=== PATIENT | male | born 1960 | race Caucasian/White ===

== ENCOUNTER 2025-08-19 08:39 | Outpatient (AMB) | payer BC, SELFPAY ==
--- OUTSIDE RECORDS SUMMARY | 2025-08-19 09:02 | XMS_ITS | Patient Health Record ---
Author Organization [facility] Address [address] [place] [address] Care Team Providers Care Forming Tube Selector Name Role Phone Сергей Brink DO Primary Care Provider Unavailab le Allergies Allergen (clinical drug ingredient) Drug/Non Drug Allergy documented on EMR Reaction Allergy Type Onset Date Status sulfamethoxazole / trimethoprim Bactrim Unknown Drug Allergy Active omeprazole Omeprazole hives Drug Allergy Activ e Zantac hives Drug Allergy Active Reason For Referral No Information Medications Medication SIG (Take, Route, Frequency, Duration) Notes Start Date End Date Status Diclofenac 75 mg Tablet 1 Tablet Orally Twice a day Active Advair Diskus 500-50 MCG/DOSE Aerosol Powder Breath Activated 1 puff Inhalation Twice a day Active Cromolyn Sodium 20 MG/2ML Nebulization Solution Inhalation Two times a day Active Budesonide 0.5 MG/2ML Suspension 1 application Inhalation Twice a day Active Restasis 0.05 % Emulsion 1 null into aff ected eye Ophthalmic Twice a day Active Social History Tobacco Use: Social History Observation Description Date Details (start date - stop date) Never Smoker NA - NA Social History Tobacco Use: Social Info Question Answer Notes Tobacco Use/Smoking Are you a nonsmoker Plan Of Treatment No Information Insurance Providers Payer Name Payer Address Payer Phone Subscriber Number Group Number Insured Name Patient Relationship to Insured Coverage Start Date [facility]age End Date [facility] [address] [place] [address] [phone] [id number] AIMEE JACOBS Self - patient is the insured Medical (General) History Medical History History ICD Code Asthma High cholesterol Arthritis Fatty liver Surgical History Surgery Date(Month/Year) left inginal hernia surgery right inginal hernia surgery belly button hernia sugery
--- OUTSIDE RECORDS SUMMARY | 2025-08-19 09:02 | XMS_ITS | Clinical Summary ---
[facility] Address [address] [address] Care Team Providers Care Environmental Health And Safety Manager Name Role Phone Unavailable Primary Care Provider Unavailabl e Social History Tobacco Use Types Packs/Day Years Used Date Smoking Tobacco: Never Assessed Sex and Gender Information Value Date Recorded Sex Assigned at Not on file Legal Sex Male 11:59 AM EDT Gender Identity Not on file Sexual Orientation Not on file Plan of Treatment Health Maintenance Due Date Last Done Comments Pneumococcal Vaccine: 50+ Ye ars (1 of 2 - PCV) 1977 Colorectal Cancer Screening: Annual FOBT 2007 Colorectal Cancer Screening: Colonoscopy 2007 Colorectal Cancer Screening: Sigmoidoscopy 2007 Influenza Vaccine (#1) 2025 Hepatitis B Vaccine Aged Out No longe r eligible based on patient's age to complete this topic
--- OUTSIDE RECORDS SUMMARY | 2025-08-19 09:02 | XMS_ITS | Clinical Summary ---
Author Organization [facility] Address [address] [place] [address] Care Team Providers Care Dolphin Trainer Name Role Phone Сергей Brink Primary Care Provider [phone] Social History Tobacco Use Types Packs/Day Years Used Date Smoking Tobacco: Never Assessed Sex and Gender Information Value Date Recorded Sex Assigned at Not on file Legal Sex Male 6:53 PM EDT Gender Identity Not on file Sexual Orientation Not on file Plan of Treatment Health Maintenance Due Date Last Done Comments Hepatitis C Screening 1958 DTaP/Tdap/Td (1 - Tdap) 1976 Pneumococcal 50+ years (1 of 1 - PCV) 2008 Zoster (Shingrix) (1 of 2) 2008 COVID-19 Vaccine ( - 2023-2 5 season) 2025 Influenza (#1) 2025 RSV (1 - 1-dose 75+ series) 2033 Abdominal Aorta Imaging Discontinued HPV Vaccine (No Doses Required) Completed Hep A Aged Out No longer eligi ble based on patient's age to complete this topic Hep B Aged Out No longer eligi ble based on patient's age to complete this topic Hib Aged Out No longer eligi ble based on patient's age to complete this topic Meningococcal ACWY Aged Out No longer eligible based on patient's age to complete this topic Zoster (Zostavax) Discontinued Insurance BC[employer] FFS [employer] Care Teams Dolphin Trainer Relationship Specialty Start Date End Date Сергей Brink [address] [place] [address] PCP - General Internal Medicine 03/24/13
--- OUTSIDE RECORDS SUMMARY | 2025-08-19 09:02 | XMS_ITS | Encounter Summary ---
Author Organization [facility] Address [address] [place] [address] Care Team Providers Care Reverse Logistics Analyst Name Role Phone Carol Medrano CARYN Primary Care Provider [phone] Encounter Details Date Type Department Care Team (Late st Contact Info) Description 03/12/2024 Orders Only [facility] Xray [address] [place] [address] Medhat Jett MD [address] [place] [address] Social History Tobacco Use Types Packs/Day Years Used Date Smoking Tobacco: Never Smokeless Tobacco: Never Comments:: Alcohol Use Standard Drinks/Week Comments Not Currently 0 (1 standard drink = 0.6 oz pur e alcohol) Sex and Gender Information Value Date Recorded Sex Assigned at Male 04/29/2021 2:07 PM EDT Legal Sex Male 3:42 AM EDT Gender Identity Male 04/29/2021 2:07 PM EDT Sexual Orientation Straight 04/29/2021 2: 07 PM EDT documented as of this encounter Plan of Treatment Upcoming Encounters Date Type Department Care Team (Late st Contact Info) Description 08/23/2025 9:00 AM EDT Follow-Up [facility] [address] [place] Pulmonology [address] [address] Darryl Ruiz MD [address] [address] 09/16/2025 2:30 PM EDT Follow-Up [facility] Nephrology [address] [address] Rome Post MD [address] [address] 11/11/2025 8:30 AM EST Follow-Up [facility] Urology [address] [place] [phone] Espinoza Ibarra MD [address] [place] [address] 12/26/2025 9:30 AM EST Education [facility] [address] [place] [address] 12/26/2025 11:00 AM EST Follow-Up [facility] [address] [place] [address] Dawson Khan MD [address] [place] [address] 12/28/2025 10:30 AM EST Appointment [facility] [address] [place] [address] 01/11/2026 11:10 AM EST Hospital Encounter [facility] Operating Room [address] [place] [address] Dawson Khan MD [address] [place] [address] 01/11/2026 11:10 AM EST - 01/11/2026 2:30 PM EST Surgery [facility] Operating Room [address] [place] [id number] Dawson Khan MD [address] [place] [phone] RIGHT TOTAL HIP REPLACEMENT [[id number] (CPT )] 01/24/2026 10:00 AM EST Follow-Up [facility] [address] [place] [address] Dawson Khan MD [address] [place] [address] 02/22/2026 10:45 AM EDT Follow-Up [facility] [address] [place] [address] Dana Caruso NP [address] [place] [address] 04/21/2026 9:00 AM EDT Follow-Up [facility] [address] [address] Dawson Khan MD [address] [place] [address] Scheduled Procedures Name Priority Associated Diagnoses Date/Ti me TOTAL HIP ARTHROPLASTY Right hip pain Primary osteoarthritis of right hip 01/11/2026 11:10 AM EST documented as of this encounter Visit Diagnoses Not on filedocumented in this encounter Additional Health Concerns Infection Onset Date Last Indicated Resolved Time R/O Respiratory Virus Infection 10/06/2024 10/06/2024 12:17 PM EST R/O Influenza 10/06/2024 10/06/2024 10/06/2024 12: 17 PM EST COVID-19 - Suspected infection 10/06/2024 10/06/2024 10/06/2024 12:17 PM EST documented as of this encounter Care Teams Reverse Logistics Analyst Relationship Specialty Start Date End Date Carol Medrano NP [address] [facility] [address] [place] [address] PCP - General Gerontology 04/11/25 documented as of this encounter
--- OUTSIDE RECORDS SUMMARY | 2025-08-19 09:02 | XMS_ITS | Clinical Summary ---
Author Organization [facility] Address [address] [place] [address] Care Team Providers Care Child Care Leader Name Role Phone MedranoCarol CARYN Primary Care Provider [phone] Allergies Active Allergy Reactions Criticality Noted Date Comments Allopurinol Abdominal Pain,Diarrhea,Rash Low 08/18/2023 Alprazolam Rash 08/01/2023 Amitriptyline Other (see comments) 08/04/2024 Amlodipine Abdominal Pain,Lightheadedness ,Other (see comments) Low 08/18/2023 Atorvastatin Calcium Muscle Pain Medium 08/18/2023 Sulfamethoxazole-Trimeth oprim Unknown High Bumetanide Diarrhea,Dizziness,H eadache High 08/18/2023 Bupropion Hcl Other (see comments) Low 08/18/2023 Capsaicin-Menthol Rash Low 06/12/2018 Cefuroxime Axetil Other (see comments) 06/18/20 Stomach ache, nausea Chlorthalidone Abdominal Pain 08/18/2023 Diltiazem Dizziness Medium 08/18/2023 Doxycycline Unknown 08/04/2024 Duloxetine Nausea 02/01/2025 Ezetimibe Muscle Pain Medium 08/18/2023 Furosemide Other (see comments) Medium 08/18/2023 Gabapentin Drowsiness 02/01/2025 Hydralazine Unknown 02/07/2025 hydralazine Labetalol Abdominal Pain,Dizziness,Dyspn ea High 08/18/2023 Lisinopril Cough 08/18/2023 Naproxen Unknown 08/01/2023 Nifedipine Abdominal Pain Medium 08/18/2023 Omeprazole Hives High Spironolactone Itching,Nausea,Rash Medium 08/18/2023 Verapamil Headache Medium 08/18/2023 Ranitidine Hcl Abdominal Pain Medications rosuvastatin (CRESTOR) 5 mg tablet Take 5 mg by mouth once a day. 10/17/20 Active clindamycin (CLEOCIN T) 1 % lotion 10/10/20 20 Active albuterol (PROAIR HFA,VENTOLIN HFA) 90 mcg inhaler USE WITH SPACER AND INHALE 2 PUFFS BY MOUTH THREE TIMES A DAY AND NEEDED 17 g 1 07/02/20 21 Active albuterol 2.5 mg/3 mL (0.083%) nebulizer solution USE 1 VIAL VIA NEBULIZER THREE TIMES DAILY NEEDED 270 mL 3 12/31/19 23 Active cholecalciferol (VITAMIN D3) 2,000 unit capsule Take 1 capsule by mouth once a day. Active cetirizine (ZyrTEC) 10 mg capsule capsule Take every day by oral route. Active budesonide (PULMICORT) 0.5 mg/2 mL suspension USE 1 VIAL VIA NEBULIZER TWICE DAILY, RINSE MOUTH AFTER USE 360 mL 3 12/20/19 25 Active cromolyn (INTAL) 20 mg/2 mL nebulizer solutionIndicat ions:Moderate persistent asthma without complication (HCC) INHALE CONTENTS OF 1 VIAL BY MOUTH IN NEBULIZER TWICE DAILY IF NEEDED FOR SEASONAL ALLERGIES 360 mL 3 12/20/19 25 Active ALPRAZolam (XANAX) 0.5 mg tablet Take 1 tablet by mouth nightly. 12/07/19 25 Active predniSONE (DELTASONE) 10 mg tablet 5 po every day as directed 60 tablet 1 03/07/20 25 Active Wixela Inhub 500-50 mcg/dose inhaler INHALE 1 PUFF BY MOUTH TWICE DAILY. RINSE MOUTH WITH WATER AFTER, DO NOT SWALLOW 60 each 3 05/23/20 25 Active tiotropium (SPIRIVA HANDIHALER) 18 mcg inhalation capsule Inhale 2 puffs (1 capsule total) via handihaler once a day. 1 kit 5 05/25/20 25 Active doxazosin (CARDURA) 4 mg tablet TAKE 1 TABLET BY MOUTH EVERY DAY NIGHTLY 90 tablet 1 06/02/20 25 Active Additional Information Patient taking differently: Pt takes 6 mg daily, Reported on 08/03/2025 fluticasone propionate (FLONASE) 50 mcg/actuation nasal spray USE 2 SPRAYS INTO EACH NOSTRIL TWICE A DAY 96 mL 1 06/14/20 25 Active olmesartan (BENICAR) 20 mg tablet Take 1 tablet (20 mg total) by mouth once a day. 90 tablet 3 07/21/20 25 Active cloNIDine (CATAPRES-TTS) 0.1 mg/[address] 1 PATCH (0.1 MG TOTAL) ON THE SKIN ONCE A WEEK. 12 patch 1 08/01/20 25 026 Active cloNIDine (CATAPRES-TTS) 0.1 mg/[address] 1 PATCH (0.1 MG TOTAL) ON THE SKIN ONCE A WEEK. 12 patch 1 02/15/20 25 025 Discontinued losartan (COZAAR) 25 mg tablet TAKE 1 TABLET BY MOUTH ONCE A DAY 90 tablet 1 03/04/20 25 025 Discontinued Active Problems Problem Noted Date Diagnosed Date Polyneuropathy due to type 2 diabetes mellitus 0 02/07/2025 Neuropathy 12/17/2024 Primary gout 12/16/2024 Plantarflexion deformity of left foot 12/16/2024 Arthritis 08/03/2024 Plantar fasciitis of left foot 11/20/2023 Pain of right hip 11/12/2023 Vitamin D deficiency 09/11/2023 Pain in left foot 09/08/2023 Chronic hepatitis 09/05/2023 BPH (benign prostatic hyperplasia) 08/01/2023 Kidney stones 08/01/2023 Left flank pain 08/01/2023 Diverticulitis of colon with perforation 023 Hyperlipidemia 07/25/2023 Essential hypertension 07/25/2023 Type 2 diabetes mellitus 07/25/2023 Paresthesia of upper limb 07/25/2023 Anxiety 07/25/2023 Kidney cyst, acquired 07/25/2023 Overview (09/05/2023): continue to monitor Renal cyst 07/25/2023 Overview (06/28/2025): continue to monitor Insect bite (nonvenomous) of left shoulder, initial encounter (CODE) 04/23/2023 Tick bite 04/19/2023 Overweight 05/31/2020 Nonspecific abnormal results of function study 0 03/24/2014 Asthma 02/28/2014 Allergic rhinitis 02/28/2014 Obstructive sleep apnea 02/28/2014 Rhinitis 02/28/2014 Gastroesophageal reflux disease without esophagi tis 02/28/2014 Abdominal pain 02/24/2014 Abnormal PFTs Intermittent asthma Resolved Problems Problem Noted Date Diagnosed Date Resolved Date Equinus deformity of left foot 12/16/2024 02/07/2025 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 11/20/2023 02/07/2025 Contact dermatitis due to chemicals 08/01/2023 08/01/2023 Dyspnea 08/01/2023 08/01/2023 Irritation of left eye 08/01/202308/01 Thigh pain 08/01/2023 08/01/2023 Viral upper respiratory trac t infection with cough 08/01/2023 08/01/2023 Encounters Date Type Department Care Team Description 08/04/2025 12:04 PM EDT - 08/04/2025 11:59 PM EDT Hospital Encounter [address] [id number] Discharge Disposition: Home or Self Care () 08/04/2025 Results Follow-Up [address] [address] Malvin Jordan MD 08/03/2025 Telephone [address] [address] Xiomy Britt MA 07/26/2025 8:24 AM EDT - 07/26/2025 11:59 PM EDT Hospital Encounter [facility] [address] [place] [address] Rigo Nguyen MD Discharge Disposition: Home or Self Care () 07/26/2025 7:29 AM EDT - 07/26/2025 8:23 AM EDT Hospital Encounter [facility] [address] [address] Rigo Nguyen MD Discharge Disposition: Home or Self Care () 07/26/2025 myChart Message [address] Department [address] [place] [address] Malvin Jordan MD New MRI 07/26/2025 Results Follow-Up [address] Cardiology [address] [place] [address] Rigo Nguyen MD 07/24/2025 [facility] Nephrology [address] [address] Rome Post MD 07/21/2025 11:30 AM EDT - 07/21/2025 11:59 PM EDT Hospital Encounter [facility] [address] [place] [phone] Rigo Nguyen MD Discharge Disposition: Home or Self Care () 07/21/2025 10:02 AM EDT - 07/21/2025 11:29 AM EDT Hospital Encounter [facility] Cardiology Test Department [address] [place] [phone] Rigo Nguyen MD Chest pain, unspecified type; Essential hypertension; Hyperlipidemia, unspecified hyperlipidemia type Discharge Disposition: Home or Self Care () 07/21/2025 Orders Only [address] Cardiology [address] [place] [address] Rigo Nguyen MD Essential hypertension (Primary Dx) 07/13/2025 8:30 AM EDT Office Visit [address] Physiatry Department [address] [place] [address] Malvin Jordan MD Chronic right-sided low back pain with right-sided sciatica (Primary Dx); Lumbar radiculopathy 07/11/2025 Transcribe Orders [address] Physiatry Department [address] [place] [address] Nate Brand, Other chronic pain (Primary Dx) 07/08/2025 3:30 PM EDT Office Visit [facility] Cardiology [address] [address] Rigo Nguyen MD Chest pain, unspecified type (Primary Dx); Essential hypertension; Hyperlipidemia, unspecified hyperlipidemia type 07/08/2025 myChart Message [facility] [address] [place] [address] Dawson Khan MD Right Hip 07/06/2025 10:17 AM EDT - 07/06/2025 1:56 PM EDT Emergency [facility] Emergency Department [address] [place] [address] Esteban Dodd MD Chest pain, unspecified type (Primary Dx) Discharge Disposition: Home or Self Care (01) 07/06/2025 [facility] Nephrology [address] [place] [phone] Rosetta Bangura [place] 06/28/2025 3:00 PM EDT Follow-Up [facility] [address] [place] [address] Dawson Khan MD Right hip pain (Primary Dx); Primary osteoarthritis of right hip 06/14/2025 Refill [facility] [address] Pulmonology [address] [address] Darryl Ruiz MD 06/09/2025 7:15 AM EDT Evaluation [facility] Physical Therapy Department [address] [place] [address] Marito Vieira PT Arthritis of right hip (Primary Dx) 06/07/2025 7:45 AM EDT Treatment [facility] Physical Therapy Department [address] [place] [address] Lakshmi Garcia PTA Arthritis of right hip (Primary Dx) 06/02/2025 11:[address] [facility] Physical Therapy Department [address] [place] [address] Marito Vieira, PT Arthritis of right hip (Primary Dx) 06/02/2025 Refill [facility] Nephrology [address] [address] Rome Post MD 05/31/2025 3:45 PM EDT Follow-Up [facility] Nephrology [address] , [place] [address] Rome Post MD Essential hypertension (Primary Dx); Kidney stones 05/31/2025 7:[address] [facility] Physical Therapy Department [address] [place] [address] Lakshmi Garcia, LILLY Arthritis of right hip (Primary Dx) 05/26/2025 1:45 PM EDT Lab [facility] Draw Site Department [address] [place] [address] Type 2 diabetes mellitus without complication, unspecified whether custodial insulin use (HCC) (Primary Dx) 05/26/2025 1:[address] [facility] Physical Therapy Department [address] [place] [phone] Lakshmi Garcia, EGG BUYER Arthritis of right hip (Primary Dx) 05/26/2025 Telephone [facility] Nephrology [address] [address] Rosetta Bangura [place] 05/24/2025 8:[address] [facility] Physical Therapy Department [address] [place] [address] Marito Vieira, PT Arthritis of right hip (Primary Dx) 05/24/2025 Refill [facility] [address] Pulmonology [address] [address] Darryl Ruiz MD 05/24/2025 Telephone [facility] [address] Pulmonology 85 [facility] [address] [place] [address] Darryl Ruiz MD 05/22/2025 Refill [facility] [address] Pul[facility]ology 85 [facility] [address] [place] [address] Darryl Ruiz MD from Last 3 Months Immunizations Immunization Administration Dates Next Due INFLUENZA, SPLIT VIRUS, TRIVALENT, PF 07/27/2017 ,09/14/2016,12/05/2015 Influenza, Injectable, Madin Jaelyn Canine Kidney, Preservative Free, Quadrivalent 08/04/2022 Influenza, Injectable, Quadr ivalent Preservative Free 09/11/2023 Influenza, Injectable, Quadr ivalent, Preservative Free 08/05/2020,07/16/2018 Influenza, Trivalent, MDV, Injectable 08/18/2021 Tetanus Toxoid, Reduced Diph theria Toxoid, and Acellular Pertussis Vaccine, Adsorbed 01/28/2017 Family History Medical History Relation Name Comments Arthritis Brother Diabetes Brother Hypertension Brother COPD Father Hypertension Father Hypertension Mother Lung cancer Mother Other Other Unknown Family history of Known health problems: none Arthritis Sister Hypertension Sister Kidney disease Neg Hx Relation Name Status Comments Brother Father Mother Other Sister Social History Tobacco Use Types Packs/Day Years Used Date Smoking Tobacco: Never Smokeless Tobacco: Never Tobacco Cessation:Counseling Given: Not Answered Comments:: Alcohol Use Standard Drinks/Week Comments Yes 0 (1 standard drink = 0.6 oz pur e alcohol) [facility] Utilities Answer Date Recorded In the past 12 months has e [employer], gas, oil, or water [employer] threatened to shut off services in your home? No 07/06/2025 Hunger Vital Sign Answer Date Recorded Within the past 12 months, y ou worried that your food would run out before you got the money to buy more. Never true 07/06/20 25 Within the past 12 months, t he food you bought just didn't last and you didn't have money to get more. Never true 07/06/2025 Transportation Answer Date Recorded In the past 12 months, has l ack of reliable transportation kept you from medical appointments, meetings, work or from getting things needed for daily living? No 07/06/2025 Housing Answer Date Recorded Housing Risk Low 2 07/06/2025 Housing Risk Medium Not on file 07/06/2025 Housing Risk High Not on file 07/06/2025 What is your living situation today? 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 Not on file Not on file Last Filed Vital Signs Vital Sign Reading Time Taken Comments Blood Pressure 134/68 07/08/2025 3:21 PM EDT Pulse 78 07/08/2025 3:19 PM EDT Temperature 36.6 C (97.8 F) 07/06/2025 10:15 AM EDT Respiratory Rate 18 07/06/2025 10:15 AM EDT Oxygen Saturation 96% 07/08/2025 3:19 PM EDT Inhaled Oxygen Concentration - - Weight 90.7 kg (200 lb) 07/13/2025 8:14 AM EDT Height 180.3 cm (5' 11 ) 07/13/2025 8:14 AM EDT Body Mass Index 27.89 07/13/2025 8:14 AM EDT Plan of Treatment Upcoming Encounters Date Type Department Care Team (Late st Contact Info) Description 08/23/2025 9:00 AM EDT Follow-Up [facility] [address] Pulmonology 85 [facility] [address] [place] [address] Darryl Ruiz MD [address] [address] 09/16/2025 2:30 PM EDT Follow-Up [facility] Nephrology [address] [place] [address] Rome Post MD [address] [place] [address] 11/11/2025 8:30 AM EST Follow-Up [facility] Urology [address] [place] [phone] Espinoza Ibarra MD [address] [place] [address] 12/26/2025 9:30 AM EST Education [facility] [address] [place] [address] 12/26/2025 11:00 AM EST Follow-Up [facility] [address] [address] Dawson Khan MD [address] [place] [address] 12/28/2025 10:30 AM EST Appointment [facility] [address] [place] [address] 01/11/2026 11:10 AM EST Hospital Encounter [facility] Operating Room [address] [place] [address] Dawson Khan MD [address] [place] [address] 01/11/2026 11:10 AM EST - 01/11/2026 2:30 PM EST Surgery [facility] Operating Room [address] [place] [address] Dawson Khan MD [address] [place] [phone] RIGHT TOTAL HIP REPLACEMENT [68715 (CPT )] 01/24/2026 10:00 AM EST Follow-Up [facility] [address] [place] [address] Dawson Khan MD [address] [place] [address] 02/22/2026 10:45 AM EDT Follow-Up [facility] [address] [place] [address] Dana Caruso NP [address] [place] [address] 04/21/2026 9:00 AM EDT Follow-Up [facility] [address] [place] [address] Dawson Khan MD [address] [place] [address] Scheduled Procedures Name Priority Associated Diagnoses Date/Ti me TOTAL HIP ARTHROPLASTY Right hip pain Primary osteoarthritis of right hip 01/11/2026 11:10 AM EST Health Maintenance Due Date Last Done Comments Cologuard 1958 FOBT / Fit Test 1958 Sigmoidoscopy 1958 Ophthalmology Exam 1968 Pneumococcal Vaccine: 50+ Ye ars (1 of 2 - PCV) 1977 Zoster Vaccines (1 of 2) 2008 Hepatitis B Vaccines (1 of 3 - Risk 3-dose series) 2018 RSV Vaccine (60+ years old a nd patients) (1 - Risk 60-74 years 1-dose series) 2018 Urine Microalbumin 03/12/2024 03/12/2023, 11/14/2022 Alcohol/Substance Use Screening 11/24/2024 Depression Screening and Follow-Up 11/24/2024 Health Care Proxy Review 11/24/2024 COVID-19 Vaccine (5 - 2024-2 6 season) 2025 09/12/2022, 11/19/2021, 02/20/2021, Additional history exists Influenza Vaccine (#1) 2025 , 09/11/2023, 08/04/2022, Additional history exists Hemoglobin A1C 11/26/2025 05/26/2025, 05/0 11/2024, 09/07/2024, Additional history exists Basic Metabolic Panel 07/06/2026 07/06/2025 , 05/26/2025, 03/24/2025, Additional history exists Social Drivers of Health Twyla ual Screening 07/06/2026 07/06/2025 DTaP,Tdap,and Td Vaccines (2 - Td or Tdap) 01/28/2027 01/28/2017 Colon Cancer Screening 05/25/2034 Colonoscopy 05/25/2034 05/25/2024, 070 12/2023, 05/19/2014 Hepatitis C Screening Completed 03/24/2014 Goals Goal Patient Goal Type Associated Problems Recent Progress Patient-Stated? Author Autogenerat ed Goal Care Plan Autogenerated Problem No Geovanna Black Mehran Procedures * Due to [place] state law, this organization might not be sharing negative HIV tests. Procedure Name Priority Date/Time Associated Diagnosis Comments MRI LUMBAR SPINE WO CONTRAST Routine 08/04/2025 1:10 PM EDT Chronic right-sided low back pain with right-sided sciatica Lumbar radiculopathy NM 2-DAY PHARMACOLOGIC STRESS AND REST Routine 07/26/2025 8:47 AM EDT Chest pain, unspecified type Essential hypertension Hyperlipidemia, unspecified hyperlipidemia type ECG 12-LEAD Routine 07/08/2025 3:20 PM EDT Chest pain, unspecified type ECG 12-LEAD STAT 07/06/2025 1:24 PM EDT TROPONIN T HIGH SENSITIVITY Timed 07/06/2025 12:23 PM EDT XR CHEST 2 VW STAT 07/06/2025 10:51 AM EDT TROPONIN T HIGH SENSITIVITY Timed 07/06/2025 10:28 AM EDT BASIC METABOLIC PANEL STAT 07/06/2025 10:28 AM EDT CBC AUTO DIFFERENTIAL STAT 07/06/2025 10:28 AM EDT ECG 12-LEAD STAT 07/06/2025 10:12 AM EDT FERRITIN Routine 05/26/2025 12:05 PM EDT Type 2 diabetes mellitus without complication, unspecified whether custodial insulin use (HCC) IRON SATURATION Routine 05/26/2025 12:05 PM EDT Type 2 diabetes mellitus without complication, unspecified whether custodial insulin use (HCC) TSH REFLEX FREE T4 Routine 05/26/2025 12 :05 PM EDT Type 2 diabetes mellitus without complication, unspecified whether custodial insulin use (HCC) IRON, TIBC AND FERRITIN PANEL (5616) Routine 05/26/2025 12:05 PM EDT Type 2 diabetes mellitus without complication, unspecified whether splitter hand insulin use (HCC) VITAMIN D, 25-HYDROXY, TOTAL, IMMUNOASSAY Routine 05/26/2025 12:05 PM EDT Type 2 diabetes mellitus without complication, unspecified whether splitter hand insulin use (HCC) CBC AUTO DIFFERENTIAL Routine 05/26/2025 12:05 PM EDT Type 2 diabetes mellitus without complication, unspecified whether splitter hand insulin use (HCC) VITAMIN B12 Routine 05/26/2025 12:05 PM EDT Type 2 diabetes mellitus without complication, unspecified whether custodial insulin use (HCC) COMPREHENSIVE METABOLIC PANEL Routine 05/26/2025 12:05 PM EDT Type 2 diabetes mellitus without complication, unspecified whether splitter hand insulin use (HCC) HEMOGLOBIN A1C Routine 05/26/2025 12:05 PM EDT Type 2 diabetes mellitus without complication, unspecified whether splitter hand insulin use (HCC) COLONOSCOPY 05/25/2024 MICROALBUMIN, RANDOM URINE WITH CREATININE Routine 03/12/2023 2:23 PM EDT HEPATITIS C ANTIBODY, CONVERSION Routine 03/24/2014 11:33 AM EDT from Last 3 Months or Most Recently Relevant to Health Maintenance Results * Due to [place] state law, this organization might not be sharing negative HIV tests. * MRI Lumbar Spine WO Contrast (08/04/2025 1:10 PM EDT) Anatomical Region Laterality Modality Spine, L-spine Magnetic Resonan ce 08/04/2025 12:3 0 PM EDT Impressions 08/04/2025 2:29 PM EDT Multilevel mild spinal stenosis. Moderate right neuroforaminal compromise is noted at L3-4 and moderate to severe right neuroforaminal compromise noted at L4-5. Moderate left neuroforaminal compromise noted at L4-5. If this radiology report contains a blank impression section, it is an incomplete radiology report. Please contact the interpreting radiologist or applicable radiology division as soon as possible to obtain the completed interpretation. Workstation ID: [id number] Narrative 08/04/2025 2:29 PM EDT EXAMINATION: MRI LUMBAR SPINE WO CONTRAST INDICATION: Lumbar radiculopathy, symptoms persist with > 6 wks treatment M54.41 - I10 - Lumbago with sciatica, right side M54.41 - I10 - Lumbago with sciatica, right side M54.41 - I10 - Lumbago with sciatica, right side - Progressive low back pain rating to right leg without improvement from physical therapy, assess for stenosis, procedural planning TECHNIQUE: MRI was performed on a 1.5Tesla system. Imaging sequences include T1 sagittal, T2 sagittal, inversion recovery sagittal; T1 and T2 axial. COMPARISON: 10/14/2023 FINDINGS: There is anatomic alignment and no evidence of fracture or subluxation. The conus terminates at L1. The vertebral heights are well-preserved. The prevertebral soft tissues are unremarkable. Disc spaces are maintained. At L1-L2, mild compromise the central canal secondary to a short pedicles and hypertrophic changes of the facets and ligaments. Disc osteophytic changes result in mild bilateral neuroforaminal compromise. At L2-L3, mild spinal stenosis secondary to a short pedicles and mild hypertrophic changes of facets and ligaments. Disc osteophytic changes result in moderate right and mild left neuroforaminal compromise. At L3-L4, mild spinal stenosis secondary to circumferential disc bulge, short pedicles and hypertrophic changes of the facets and ligaments especially on the left. Disc osteophytic changes result in moderate right and mild left neuroforaminal compromise. At L4-L5, mild spinal stenosis secondary to a circumferential disc bulge, short pedicles and hypertrophic changes of the facets and ligaments. Disc osteophytic changes result in moderate to severe right and moderate left neuroforaminal compromise. At L5-S1, no significant central spinal stenosis or neuroforaminal narrowing. Resulting Agency Comment [id number] Procedure Note Donald Hopper MD - 08/04/2025 EXAMINATION: MRI LUMBAR SPINE WO CONTRAST INDICATION: Lumbar radiculopathy, symptoms persist with > 6 wks [id number] - I10 - Lumbago with sciatica, right side M54.41 - I10 - Lumbagowith sciatica, right side M54.41 - I10 - Lumbago with sciatica, right side- Progressive low back pain rating to right leg without improvement fromphysical therapy, assess for stenosis, procedural planning TECHNIQUE: MRI was performed on a 1.5Tesla system. Imaging sequences include [id number], T2 sagittal, inversion recovery sagittal; T1 and T2 axial. COMPARISON: 10/14/2023 FINDINGS: There is anatomic alignment and no evidence of fracture or subluxation. The conus terminates at L1. The vertebral heights are well-preserved. The prevertebral soft tissues are unremarkable. Disc spaces are maintained. At L1-L2, mild compromise the central canal secondary to a short pediclesand hypertrophic changes of the facets and ligaments. Disc osteophyticchanges result in mild bilateral neuroforaminal compromise. At L2-L3, mild spinal stenosis secondary to a short pedicles and mildhypertrophic changes of facets and ligaments. Disc osteophytic changesresult in moderate right and mild left neuroforaminal compromise. At L3-L4, mild spinal stenosis secondary to circumferential disc bulge,short pedicles and hypertrophic changes of the facets and ligamentsespecially on the left. Disc osteophytic changes result in moderate rightand mild left neuroforaminal compromise. At L4-L5, mild spinal stenosis secondary to a circumferential disc bulge,short pedicles and hypertrophic changes of the facets and ligaments. Discosteophytic changes result in moderate to severe right and moderate leftneuroforaminal compromise. At L5-S1, no significant central spinal stenosis or neuroforaminalnarrowing. IMPRESSION: Multilevel mild spinal stenosis. Moderate right neuroforaminal compromiseis noted at L3-4 and moderate to severe right neuroforaminal compromisenoted at L4-5. Moderate left neuroforaminal compromise noted at L4-5. If this radiology report contains a blank impression section, it is anincomplete radiology report. Please contact the interpreting radiologistor applicable radiology division as soon as possible to obtain thecompleted interpretation. Workstation ID: [id number] us Malvin Jordan MD IMG MRI PROCEDURES F inal Result * NM 2-Day Stress and Rest (07/26/2025 8:47 AM EDT) Anatomical Region Laterality Modality Heart Treadmill 07/26/2025 9:23 AM EDT Impressions 07/26/2025 9:24 AM EDT Normal pharmacologic nuclear stress test without nuclear imaging evidence of ischemia or prior myocardial infarction. Left ventricular cavity size and systolic function are normal on gated nuclear imaging. If this radiology report contains a blank impression section, it is an incomplete radiology report. Please contact the interpreting radiologist or applicable radiology division as soon as possible to obtain the completed interpretation. Workstation ID: [id number] Narrative 07/26/2025 9:24 AM EDT EXAM: REGADENOSON MYOCARDIAL PERFUSION SPECT SCAN INDICATION: Chest pain/anginal equiv, intermediate CAD risk, not treadmill candidate R07.9 - I10 - Chest pain, unspecified R07.9 - I10 - Chest pain, unspecified R07.9 - I10 - Chest pain, unspecified PHARMACOLOGIC STRESS TEST: The patient had a total dose of 0.4 mg regadenoson infused IV over 10 seconds. The HR was 70 bpm at baseline and 96 bpm at peak regadenoson effect. The blood pressure response was normal going from 148/88 to 168/91. The patient's baseline ECG demonstrated sinus rhythm. There were no ECG changes during or after regadenoson to suggest ischemia. No concerning arrhythmias were detected. The patient reported abdominal discomfort and a headache for which 75 mg of aminophylline were administered IV. Symptoms resolved afterward. IMAGING PROCEDURE: Following regadenoson infusion, the patient was injected with 25 mCi Tc99m Sestamibi. SPECT cardiac imaging was again performed. On a different day, rest SPECT cardiac imaging was performed using 25 mCi Tc99m Sestamibi. SPECT cardiac imaging was then performed. Images were gated to evaluate wall thickening and wall motion. A left ventricular ejection fraction was calculated by computer analysis. FINDINGS: Post stress myocardial images show normal tracer uptake throughout the left ventricular myocardium. Rest images are unchanged. ECG-gated post-stress myocardial images demonstrate normal wall motion and thickening. TID ratio is normal measuring 0.9.The calculated LVEF is 59% with rest imaging, and 65% with post stress imaging. The LV chamber size is normal. Resulting Agency Comment [id number] Procedure Note Rigo Nguyen MD - 07/26/2025 EXAM: REGADENOSON MYOCARDIAL PERFUSION SPECT SCAN INDICATION: Chest pain/anginal equiv, intermediate CAD risk, not treadmillcandidate R07.9 - I10 - Chest pain, unspecified R07.9 - I10 - Chest pain,unspecified R07.9 - I10 - Chest pain, unspecified PHARMACOLOGIC STRESS TEST: The patient had a total dose of 0.4 mgregadenoson infused IV over 10 seconds. The HR was 70 bpm at baseline and96 bpm at peak regadenoson effect. The blood pressure response was normalgoing from 148/88 to 168/91. The patient's baseline ECG demonstratedsinus rhythm. There were no ECG changes during or after regadenoson tosuggest ischemia. No concerning arrhythmias were detected. The patientreported abdominal discomfort and a headache for which 75 mg ofaminophylline were administered IV. Symptoms resolved afterward. IMAGING PROCEDURE: Following regadenoson infusion, the patient wasinjected with 25 mCi Tc99m Sestamibi. SPECT cardiac imaging was againperformed. On a different day, rest SPECT cardiac imaging was performedusing 25 mCi Tc99m Sestamibi. SPECT cardiac imaging was then performed.Images were gated to evaluate wall thickening and wall motion. A leftventricular ejection fraction was calculated by computer analysis. FINDINGS: Post stress myocardial images show normal tracer uptakethroughout the left ventricular myocardium. Rest images are unchanged.ECG-gated post-stress myocardial images demonstrate normal wall motion andthickening. TID ratio is normal measuring 0.9.The calculated LVEF is 59%with rest imaging, and 65% with post stress imaging. The LV chamber sizeis normal. IMPRESSION: Normal pharmacologic nuclear stress test without nuclear imaging evidenceof ischemia or prior myocardial infarction. Left ventricular cavity sizeand systolic function are normal on gated nuclear imaging. If this radiology report contains a blank impression section, it is anincomplete radiology report. Please contact the interpreting radiologistor applicable radiology division as soon as possible to obtain thecompleted interpretation. Workstation ID: [id number] us Rigo Nguyen MD IMG NM PROCEDURES Final R esult * ECG 12 lead (07/08/2025 3:20 PM EDT) Only the most recent of3 resultswithin the time period is included. Ventricular Rate EKG 76 BPM MUSE EKG Atrial Rate 76 BPM MUSE EKG NJ Interval 176 ms MUSE EKG QRS Interval 82 ms MUSE EKG QT Interval 370 ms MUSE EKG QTC Interval 416 ms MUSE EKG P Hewlett 43 degrees MUSE EKG R Hewlett 9 degrees MUSE EKG T Wave Hewlett 50 degrees MUSE EKG 07/08/2025 3:20 PM EDT 07/08/2025 5:02 PM EDT Impressions MUSE EKG - 07/08/2025 5:02 PM EDT Normal sinus rhythm Normal ECG When compared with ECG of 06-Jul-2025 13:24, No significant change was found Confirmed by Rigo Nguyen ([id number]) on 07/08/2025 5:02:37 PM Narrative Procedure Note Rigo Nguyen MD - 07/08/2025 IMPRESSION: Normal sinus rhythm Normal ECG When compared with ECG of 06-Jul-2025 13:24, No significant change was found Confirmed by Rigo Nguyen ([id number]) on 07/08/2025 5:02:37 PM us Rigo Nguyen MD ECG ORDERABLES Final Res ult Performing Organization Address [facility] Co de Phone Number MUSE EKG * Troponin T, High Sensitivity X2 (now + 2hrs) (07/06/2025 12:23 PM EDT) Only the most recent of2 resultswithin the time period is included. Troponin T High Sensitivity 14 6 - 22 ng/L 07/06/2025 1:00 PM EDT [facility] Comment: Xp-Sbgcrcab-B level of 52 ng/L or higher at 0-hour at presentation is recommended by the ESC 0/1-hour algorithm for identifying patients at high risk for ruling in acute myocardial infarction (AMI) in the appropriate clinical context. Repeat troponin testing 1-3 hours after the initial sample may be helpful in assessing for ongoing myocardial injury. Troponin elevations can be seen in several other non-infarct conditions, and the change (delta) should be evaluated in line with the 4th Penelope Definition of AMI. Troponin baseline and serial elevation for a significant delta should be interpreted with clinical presentation, history, signs and symptoms, ECG, and biomarker concentrations. For inpatient setting: Value <12ng/L is considered negative for all genders. 0-1hr: A delta change of <3 will be considered negative/flat if chest pain onset >3 hours 0-3hr: A delta change of <7 will be considered negative/flat Blood Structure of peripheral vein / Unknown Venipuncture / Unknown 07/06/2025 12:23 PM EDT 07/06/2025 12:28 PM EDT Esteban Dodd MD LAB BLOOD ORDERABLES Fin al Result Performing Organization Address [facility] Co de Phone Number [facility] [address] [place] [address], [place] [phone] * XR Chest 2 vw. Standard (07/06/2025 10:51 AM EDT) Anatomical Region Laterality Modality Body Radiographic Stacie ging 07/06/2025 11:4 0 AM EDT Impressions 07/06/2025 11:46 AM EDT No focal consolidation or evidence of pulmonary edema. If this radiology report contains a blank impression section, it is an incomplete radiology report. Please contact the interpreting radiologist or applicable radiology division as soon as possible to obtain the completed interpretation. Workstation ID: [id number] Narrative 07/06/2025 11:46 AM EDT COMPARISON: Chest radiographs from 07/13/2024 FINDINGS: The cardiomediastinal silhouette is unremarkable. Trachea has a normal course and caliber. Pulmonary vasculature is normal. Minimal blunting of the posterior right costophrenic angle may represent a trace effusion. No focal consolidation. No pneumothorax. No acute osseous abnormalities. Resulting Agency Comment [id number] Procedure Note Shady Krueger MD - 07/06/2025 COMPARISON: Chest radiographs from 07/13/2024 FINDINGS: The cardiomediastinal silhouette is unremarkable. Trachea has a normalcourse and caliber. Pulmonary vasculature is normal. Minimal blunting ofthe posterior right costophrenic angle may represent a trace effusion. Nofocal consolidation. No pneumothorax. No acute osseous abnormalities. IMPRESSION: No focal consolidation or evidence of pulmonary edema. If this radiology report contains a blank impression section, it is anincomplete radiology report. Please contact the interpreting radiologistor applicable radiology division as soon as possible to obtain thecompleted interpretation. Workstation ID: [id number] Esteban Dodd MD IMG XR PROCEDURES Final Result * (ABNORMAL) CBC Auto Differential (07/06/2025 10:28 AM EDT) Only the most recent of2 resultswithin the time period is included. WBC 7.4 4.8 - 10.8 10*3/uL 07/06/2025 10:40 AM EDT [facility] RBC 5.31 4.70 - 6.10 10*6/uL 07/06/2025 10:40 AM EDT [facility] Hemoglobin 15.9 13.7 - 16.5 g/dL 07/06/2025 10:40 AM EDT [facility] Hematocrit 44.5 40.5 - 48.5 % 07/06/2025 10:40 AM EDT [facility] MCV 83.8 80.0 - 94.0 fL 07/06/2025 10:40 AM EDT [facility] MCH 29.9 26.0 - 34.0 pg 07/06/2025 10:40 AM EDT [facility] MCHC 35.7 31.0 - 36.0 g/dL 07/06/2025 10:40 AM EDT [facility] RDW 12.7 12.0 - 15.0 % 07/06/2025 10:40 AM EDT [facility] RDW Standard Deviation 39.1 35.1 - 43.9 fL 07/06/2025 10:40 AM EDT [facility] Platelets 167 140 - 440 10*3/uL 07/06/2025 10:40 AM EDT [facility] MPV 9.5 9.4 - 12.4 fL 07/06/2025 10:40 AM EDT [facility] Neutrophil % 74.1 50.0 - 75.0 % 07/06/2025 10:40 AM EDT [facility] Immature Grans % 0.3 0.0 - 0.9 % 07/06/2025 10:40 AM EDT [facility] Lymphocyte % 18.9(L) 20.0 - 44.0 % 07/06/2025 10:40 AM EDT [facility] Monocyte % 5.0 0.0 - 14.0 % 07/06/2025 10:40 AM EDT [facility] Eosinophil % 1.2 0.0 - 5.0 % 07/06/2025 10:40 AM EDT [facility] Basophil % 0.5 0.0 - 2.0 % 07/06/2025 10:40 AM EDT [facility] Neutrophil # 5.49 1.80 - 7.70 10*3/uL 07/06/2025 10:40 AM EDT [facility] Immature Grans # <0.03 0.00 - 0.03 10*3/uL 07/06/2025 10:40 AM EDT [facility] Lymphocyte # 1.40 1.00 - 4.75 10*3/uL 07/06/2025 10:40 AM EDT [facility] Monocyte # 0.40 0.00 - 0.60 10*3/uL 07/06/2025 10:40 AM EDT [facility] Eosinophil # 0.10 0.00 - 0.80 10*3/uL 07/06/2025 10:40 AM EDT [facility] Basophil # <0.03 0.00 - 0.20 10*3/uL 07/06/2025 10:40 AM EDT [facility] nRBC % 0.0 0 - 0 /100 WBCs 07/06/2025 10:40 AM EDT [facility] nRBC # <0.01 0.00 - 0.13 10*3/uL 07/06/2025 10:40 AM EDT [facility] Blood Structure of peripheral vein / Unknown Venipuncture / Unknown 07/06/2025 10:28 AM EDT 07/06/2025 10:37 AM EDT us Esteban Dodd MD LAB BLOOD ORDERABLES Fin al Result Performing Organization Address City/State/[facility] Co de Phone Number [facility] [address] [place] [address], * (ABNORMAL) Basic Metabolic Panel (07/06/2025 10:28 AM EDT) NA 142 136 - 145 mmol/L 07/06/2025 11:08 AM EDT [facility] K 3.9 3.5 - 5.1 mmol/L 07/06/2025 11:08 AM EDT [facility] Cl 102 98 - 109 mmol/L 07/06/2025 11:08 AM EDT [facility] CO2 27 22 - 32 mmol/L 07/06/2025 11:08 AM EDT [facility] BUN 14 8 - 23 mg/dL 07/06/2025 11:08 AM EDT [facility] Creatinine 0.92 0.50 - 1.12 mg/dL 07/06/2025 11:08 AM EDT [facility] Glucose 99 60 - 99 mg/dL 07/06/2025 11:08 AM EDT [facility] Calcium 10.5(H) 8.4 - 10.4 mg/dL 07/06/2025 11:08 AM EDT [facility] Anion Gap 17 >=0 07/06/2025 11:08 AM EDT [facility] eGFR >90 >=60 mL/min/1. 73m2 07/06/2025 11:08 AM EDT [facility] Comment:The estimated glomer ular filtration rate (eGFR) is calculated using a new formula developed by the NKF-ASN task force to eliminate race-based correction factors. The new formula uses serum/plasma creatinine, age, and gender to determine eGFR. A value below 60mls/min might indicate kidney disease and will be flagged. For additional information, see Munguia et al, Am J Kidney Dis. 2021;79(2):268- 288, A Unifying Approach for GFR estimation: Recommendations of the NKF-ASN Task Force on Reassessing the Inclusion of Race in Diagnosing Kidney Disease . Blood Structure of peripheral vein / Unknown Venipuncture / Unknown 07/06/2025 10:28 AM EDT 07/06/2025 10:37 AM EDT Esteban Dodd MD LAB BLOOD ORDERABLES Fin al Result [facility] [address] [place] [address], * Iron Saturation (05/26/2025 12:05 PM EDT) Iron 98 59 - 158 ug/dL 05/26/2025 1:30 PM EDT [facility] Unsaturated Iron Binding 252.0 112.0 - 347.0 ug/dL 05/26/2025 1:30 PM EDT [facility] Transferrin Saturation 28 20 - 50 % 05/26/2025 1:30 PM EDT [facility] Blood Structure of peripheral vein / Unknown Venipuncture / Unknown 05/26/2025 12:05 PM EDT 05/26/2025 12:21 PM EDT us Wes Owen NP LAB BLOOD ORDERABLES Final Res ult Performing Organization Address [facility]/ZIP Co de Phone Number [facility] [address] [address], [place] [phone] * TSH Reflex Free T4 (05/26/2025 12:05 PM EDT) TSH 1.650 0.270 - 4.200 uIU/mL 05/26/2025 1:30 PM EDT [facility] Blood Structure of peripheral vein / Unknown Venipuncture / Unknown 05/26/2025 12:05 PM EDT 05/26/2025 12:21 PM EDT us Wes Owen NP LAB BLOOD ORDERABLES Final Res ult Performing Organization Address [facility] Co de Phone Number [facility] [address] [place] [address], [place] [phone] * Vitamin D, 25-Hydroxy, Total, Immunoassay (05/26/2025 12:05 PM EDT) Vitamin D 25-OH 49.20 30.00 - 80.00 ng/mL 05/26/2025 1:36 PM EDT [facility] Blood Structure of peripheral vein / Unknown Venipuncture / Unknown 05/26/2025 12:05 PM EDT 05/26/2025 12:21 PM EDT us Wes Owen DOCUMENT RESTORER LAB BLOOD ORDERABLES Final Res ult Performing Organization Address [facility]/ZIP Co de Phone Number [facility] [address] [address], [place] [phone] * (ABNORMAL) Hemoglobin A1c (05/26/2025 12:05 PM EDT) Hemoglobin A1c 6.3(H) 4.0 - 5.7 % 05/26/2025 12:44 PM EDT [facility] Estimated Average Glucose 134 mg/dL 05/26/2025 12:44 PM EDT [facility] Blood Structure of peripheral vein / Unknown Venipuncture / Unknown 05/26/2025 12:05 PM EDT 05/26/2025 12:21 PM EDT us Wes Owen DOCUMENT RESTORER LAB BLOOD ORDERABLES Final Res ult Performing Organization Address [facility] Co de Phone Number [facility] [address] [place] [address], [place] [phone] * Ferritin (05/26/2025 12:05 PM EDT) Pathologist [facility] Ferritin 178.0 30.0 - 400.0 ng/mL 05/26/2025 1:30 PM EDT [facility] Blood Structure of peripheral vein / Unknown Venipuncture / Unknown 05/26/2025 12:05 PM EDT 05/26/2025 12:21 PM EDT us Wes Owen DOCUMENT RESTORER LAB BLOOD ORDERABLES Final Res ult Performing Organization Address City/[facility]/ZIP Co de Phone Number [facility] [address] [place] [address], [place] [phone] * Vitamin B12 (05/26/2025 12:05 PM EDT) Vitamin B12 441 232 - 1,245 pg/mL 05/26/2025 1:30 PM EDT [facility] Blood Structure of peripheral vein / Unknown Venipuncture / Unknown 05/26/2025 12:05 PM EDT 05/26/2025 12:21 PM EDT us Wes Owen DOCUMENT RESTORER LAB BLOOD ORDERABLES Final Res ult [facility] [address] [place] [address], [place] [phone] * (ABNORMAL) Comprehensive Metabolic Panel (05/26/2025 12:05 PM EDT) NA 140 136 - 145 mmol/L 05/26/2025 1:30 PM EDT [facility] K 4.1 3.5 - 5.1 mmol/L 05/26/2025 1:30 PM EDT [facility] Cl 102 98 - 109 mmol/L 05/26/2025 1:30 PM EDT [facility] CO2 27 22 - 32 mmol/L 05/26/2025 1:30 PM EDT [facility] Anion Gap 15 >=0 05/26/2025 1:30 PM EDT [facility] Glucose 98 60 - 99 mg/dL 05/26/2025 1:30 PM EDT [facility] Creatinine 0.95 0.50 - 1.12 mg/dL 05/26/2025 1:30 PM EDT [facility] Calcium 9.8 8.4 - 10.4 mg/dL 05/26/2025 1:30 PM EDT [facility] Total Protein 6.4(L) 6.6 - 8.7 g/dL 05/26/2025 1:30 PM EDT [facility] Albumin 4.7 3.5 - 5.0 g/dL 05/26/2025 1:30 PM EDT [facility] Bilirubin, Total 0.6 0.2 - 1.2 mg/dL 05/26/2025 1:30 PM EDT [facility] Alkaline Phosphatase 65 40 - 129 U/L 05/26/2025 1:30 PM EDT [facility] AST 19 0 - 40 U/L 05/26/2025 1:30 PM EDT [facility] ALT 35 <=41 U/L 05/26/2025 1:30 PM EDT [facility] BUN 13 8 - 23 mg/dL 05/26/2025 1:30 PM EDT [facility] eGFR 88 >=60 mL/min/1. 73m2 05/26/2025 1:30 PM EDT [facility] Comment:The estimated glomer ular filtration rate (eGFR) is calculated using a new formula developed by the NKF-ASN task force to eliminate race-based correction factors. The new formula uses serum/plasma creatinine, age, and gender to determine eGFR. A value below 60mls/min might indicate kidney disease and will be flagged. For additional information, see Munguia et al, Am J Kidney Dis. 2021;79(2):268- 288, A Unifying Approach for GFR estimation: Recommendations of the NKF-ASN Task Force on Reassessing the Inclusion of Race in Diagnosing Kidney Disease . Globulin, Total 1.7(L) 2.1 - 4.2 g/dL 05/26/2025 1:30 PM EDT [facility] A/G Ratio 2.8 1.5 - 3.0 05/26/2025 1:30 PM EDT [facility] Blood Structure of peripheral vein / Unknown Venipuncture / Unknown 05/26/2025 12:05 PM EDT 05/26/2025 12:21 PM EDT us Wes Owen NP LAB BLOOD ORDERABLES Final Res ult [facility] [address] [place] [address] [address] [place] [address], * COLONOSCOPY (05/25/2024) Narrative Procedure Note Reza Samson MD - 05/25/2024 7:27 AM EDT [facility] Patient Name: Shashank Jensen Procedure Date: 05/25/2024 7:27 AM Date of : 1960 Admit Type: Outpatient Age: 64 Room: GI PROCEDURE Gender: Male Note Status: Finalized Attending MD: Reza Samson MD Procedure: Colonoscopy Indications: Screening for colorectal malignant neoplasm Comorbidities Providers: Reza Samson MD Referring MD: Liset Boucher (Referring MD) Requesting Provider: Medicines: See the Anesthesia note for documentation of the administered medications Complications: No immediate complications. Estimated Blood Loss: Estimated blood loss: none. Procedure: After I obtained informed consent, the scope was passed under direct vision. Throughout theprocedure, the patient's blood pressure, pulse, and oxygen saturations were monitored continuously. [id number] Colonoscope was introduced through the anus and advanced to the cecum, identified by appendiceal orifice and ileocecal valve. The colonoscopy was performed without difficulty. The patient tolerated the procedure well. The quality of the bowel preparation was good. informed consent included but was not limited to fever, infections, bleeding, perforation, missed pathology, damage to a majororgan and lack of guarantee of benefit Findings: The perianal and digital rectal examinations were normal. There was evidence of a prior end-to-side colo-colonic anastomosis in the sigmoid colon. This was patent and was characterized by healthy appearing mucosa. The anastomosis was traversed. A 5 mm polyp was found in the ascending colon. The polyp was sessile. The polyp was removed with a cold snare. Resection and retrieval were complete. Two sessile polyps were found in the sigmoid colon. The polyps were 5to 6 mm in size. These polyps were removed with a cold snare. Resectionand retrieval were complete. A few small-mouthed diverticula were found in the sigmoid colon. No additional abnormalities were found on retroflexion. Impression: - Patent end-to-side colo-colonic anastomosis, characterized by healthy appearing mucosa. - One 5 mm polyp in the ascending colon, removedwith a cold snare. Resected and retrieved. - Two 5 to 6 mm polyps in the sigmoid colon,removed with a cold snare. Resected and retrieved. - Diverticulosis in the sigmoid colon. Recommendation: - No aspirin, ibuprofen, naproxen, or other non-steroidal anti-inflammatory drugs for 7 daysafter polyp removal. - Await pathology results. - Repeat colonoscopy date to be determined after pending pathology results are reviewed for surveillance based on pathology results. Reza Samson MD 05/25/2024 7:57:00 AM This report has been signed electronically. Number of Addenda: 0 Note Initiated On: 05/25/2024 7:27 AM Reza Samson MD [employer] PROCEDURES Final Re sult * Microalbumin, Random Urine with Creatinine (03/12/2023 2:23 PM EDT) Creatinine, Urine 56.90 mg/dL [facility] Microalbumin, Urine 2.2 0 - 20 mg/L [facility] Microalb/Creat Ratio, Random Urine 3.0 1.3 - 30.0 mg/g [facility] Comment:CC: GARRET RENDON 03/12/2023 2:23 PM EDT Garret Rendon DO LAB URINE ORDERABLES Fin al Result [facility] * HEPATITIS C ANTIBODY, CONVERSION (03/24/2014 11:33 AM EDT) Hepatitis C Antibody 0.07 <1.00 [place] [facility] HCV Interpretation Negative Q [facility] Comment: Not infected with HCV, unless recent infection is suspected or other evidence exists to indicate HCV infection. 03/24/2014 11:3 3 AM EDT 03/24/2014 9:54 PM EDT Reza Diane MD LAB HISTORICAL RESULTS Final Result [employer] from Last 3 Months or Most Recently Relevant to Health Maintenance Additional Health Concerns Active Problems Noted Date Diagnosed Date Autogenerated Problem 06/29/2025 Insurance [facility] [employer] [facility] [employer] Advance Directives * Full Code (Latest Code Status on File) Date Activated Date Inactivated Comments 05/25/2024 6:33 AM 05/25/2024 10:35 AM Care Teams Child Care Leader Relationship Specialty Start Date End Date Carol Medrano NP [address] [facility] [address] [place] [id number] PCP - General Gerontology 04/11/25
--- OUTSIDE RECORDS SUMMARY | 2025-08-19 09:02 | XMS_ITS | Encounter Summary ---
Author Organization [facility] Address [address] [place] [address] Care Team Providers Care Color Repairer Name Role Phone Carol Medrano NP Primary Care Provider Encounter Details Date Type Department Care Team (Late st Contact Info) Description 03/01/2024 Lab Requisition [facility] Lab [address] [place] [address] Carol Medrano NP 100 [facility] [address] [place] [phone] Urinary tract infection, site not specified Social History Tobacco Use Types Packs/Day Years [...] Info) Description 08/23/2025 9:00 AM EDT Follow-Up [facility] 85 [place] [facility] [address] [place] [address] Darryl Ruiz MD [address] [address] 09/16/2025 2:30 PM EDT Follow-Up [facility] Nephrology [address] [address] Rome Post MD [address] [address] 11/11/2025 8:30 AM EST Follow-Up [facility] Urology 20 [place] [address] Espinoza Ibarra MD 20 [place] [address] 12/26/2025 9:30 AM EST Education [facility] [address] [place] [address] 12/26/2025 11:00 AM EST Follow-Up [facility] [address] [place] [address] Dawson Khan MD [address] [place] [address] 12/28/2025 10:30 AM EST Appointment [facility] [address] [facility] [address] [place] [address] 01/11/2026 11:10 AM EST Hospital Encounter [facility] Operating Room [address] [place] [address] Dawson Khan MD [address] [place] [address] 01/11/2026 11:10 AM EST - 01/11/2026 2:30 PM EST Surgery [facility] Operating Room [address] [place] [address] Dawson Khan MD [address] [place] [address] RIGHT TOTAL HIP REPLACEMENT [[id number] (CPT )] 01/24/2026 10:00 AM EST Follow-Up [facility] [address] [place] [address] Dawson Khan MD [address] [place] [address] 02/22/2026 10:45 AM EDT Follow-Up [facility] [address] [place] [address] Dana Caruso NP [address] [place] [address] 04/21/2026 9:00 AM EDT Follow-Up [facility] [address] [place] [address] Dawson Khan MD [address] [place] [address] Scheduled Procedures Name Priority Associated Diagnoses Date/Ti me TOTAL HIP ARTHROPLASTY Right hip pain Primary osteoarthritis of right hip 01/11/2026 11:10 AM EST documented as of this encounter Procedures * Due to [place] [employer] law, this organization might not be sharing negative HIV tests. Procedure Name Priority Date/Time Associated Diagnosis Comments URINE CULTURE, ROUTINE Routine 03/01/2024 12:19 PM EDT Urinary tract infection, site not specified documented in this encounter Results * Due to [place] state law, this organization might not be sharing negative HIV tests. * Urine Culture, Routine (03/01/2024 12:19 PM EDT) Urine Culture No growth [facility] 03/02/2024 9:33 AM EDT [facility] Urine Urine specimen collection, clean catch / Unknown 03/01/2024 12:19 PM EDT 03/01/2024 12:19 PM EDT us Craol Medrano NP LAB MICROBIOLOGY - GENERAL ORD ERABLES Final Result [facility] 94 [facility] [address] [place] [address], documented in this encounter Visit Diagnoses Diagnosis Urinary tract infection, site not specified Right hip pain Pain in joint, pelvic region and thigh Primary osteoarthritis of right hip documented in this encounter Additional Health Concerns Infection Onset Date Last Indicated Resolved Time R/O Respiratory Virus Infection 10/06/2024 10/06/2024 12:17 PM EST R/O Influenza 10/06/2024 10/06/2024 10/06/2024 12: 17 PM EST COVID-19 - Suspected infection 10/06/2024 10/06/2024 10/06/2024 12:17 PM EST documented as of this encounter Care Teams Color Repairer Relationship Specialty Start Date End Date Carol Medrano NP [address] [place] [address] PCP - General Gerontology 04/11/25 documented as of this encounter
--- OUTSIDE RECORDS SUMMARY | 2025-08-19 09:02 | XMS_ITS | Encounter Summary ---
Author Organization [facility] Address [address] [place] [address] Care Team Providers Care Hair Spring Cutter Name Role Phone Carol Medrano CARYN Primary Care Provider [phone] Encounter Details Date Type Department Care Team (Late st Contact Info) Description 08/18/2023 External Result Entry [facility] Nephrology [address] [place] [address] [place] [address] Lesli [place] Social History Tobacco Use Types Packs/Day Years Used Date Smoking Tobacco: Never Smokeless Tobacco: Never Comments:: Sex and Gender Information Value Date Recorded Sex Assigned at Male 04/29/2021 2:07 PM EDT Legal Sex Male 3:42 AM EDT Gender Identity Male 04/29/2021 2:07 PM EDT Sexual Orientation Straight 04/29/2021 2: 07 PM EDT documented as of this encounter Plan of Treatment Upcoming Encounters Date Type Department Care Team (Late st Contact Info) Description 08/23/2025 9:00 AM EDT Follow-Up [facility] 85 [place] [facility] [address] [address] Darryl Ruiz MD [address] [address] 09/16/2025 2:30 PM EDT Follow-Up [facility] Nephrology [address] [place] [address] Rome Post MD [address] [place] [address] 11/11/2025 8:30 AM EST Follow-Up [facility] Urology 20 [place] [address] Espinoza Ibarra MD 20 [place] [address] 12/26/2025 9:30 AM EST Education [facility] [address] [place] [address] 12/26/2025 11:00 AM EST Follow-Up [facility] Arthritis [facility] Joint [address] [address] Dawson Khan MD [address] [place] [address] 12/28/2025 10:30 AM EST Appointment [facility] [address] [place] [address] [address] [place] [address] 01/11/2026 11:10 AM EST Hospital Encounter [facility] Operating Room [address] [place] [address] Dawson Khan MD [address] [place] [address] 01/11/2026 11:10 AM EST - 01/11/2026 2:30 PM EST Surgery [facility] Operating Room [address] [place] [address] Dawson Khan MD [address] [place] [phone] RIGHT TOTAL HIP REPLACEMENT [[id number] (CPT )] 01/24/2026 10:00 AM EST Follow-Up [facility] [address] [place] [address] Dawson Khan MD [address] [place] [address] 02/22/2026 10:45 AM EDT Follow-Up [facility] [address] [place] [address] Dana Caruso NP [address] [place] [address] 04/21/2026 9:00 AM EDT Follow-Up [facility] [address] [place] [address] Dawson Khan MD [address] [place] [address] Scheduled Procedures Name Priority Associated Diagnoses Date/Ti me TOTAL HIP ARTHROPLASTY Right hip pain Primary osteoarthritis of right hip 01/11/2026 11:10 AM EST documented as of this encounter Procedures * Due to [place] [employer] law, this organization might not be sharing negative HIV tests. Procedure Name Priority Date/Time Associated Diagnosis Comments VITAMIN D 1,25 DIHYDROXY, OUTSIDE LAB Routine 08/15/2023 PROTEIN URINE, OUTSIDE LAB Routine 08/15/2023 CREAT URINE, OUTSIDE LAB Routine 08/15/2023 MAGNESIUM, OUTSIDE LAB Routine 08/15/2023 BASIC METABOLIC PANEL, OUTSIDE LAB Routine 08/15/2023 documented in this encounter Results * Due to [place] state law, this organization might not be sharing negative HIV tests. * Basic Metabolic Panel, Outside Lab (08/15/2023) Sodium 141 mmol/L Potassium 3.4 Chloride 99 Carbon Dioxide 27 Anion Gap 18 Glucose 154 BUN 14 mg/dL Creatinine 0.83 mg/dL eGFR Non- >90 Calcium 10.0 mg/dL Blood Structure of peripheral vein / Unknown 08/15/2023 Unknown Provider MD LAB BLOOD ORDERABLES Final R esult * Magnesium, Outside Lab (08/15/2023) Magnesium 1.90 mg/dL Blood Structure of peripheral vein / Unknown 08/15/2023 Unknown Provider MD LAB BLOOD ORDERABLES Final R esult * Vitamin D 1,25 Dihydroxy, Outside Lab (08/15/2023) Vitamin D 1,25 OH, Total, Outside Lab 23.50 Blood Structure of peripheral vein / Unknown 08/15/2023 Unknown Provider MD LAB BLOOD ORDERABLES Final R esult * Protein Urine, Outside Lab (08/15/2023) Protein, Urine, Outside Lab 8 Urine 08/15/2023 Result [facility] Unknown Provider MD LAB URINE ORDERABLES Final R esult * Creatinine Urine, Outside Lab (08/15/2023) Creatinine Urine, Outside Lab 102.00 Urine 08/15/2023 Unknown Provider MD LAB URINE ORDERABLES Final R esult documented in this encounter Visit Diagnoses Not on filedocumented in this encounter Additional Health Concerns Infection Onset Date Last Indicated Resolved Time R/O Respiratory Virus Infection 10/06/2024 10/06/2024 12:17 PM EST R/O Influenza 10/06/2024 10/06/2024 10/06/2024 12: 17 PM EST COVID-19 - Suspected infection 10/06/2024 10/06/2024 10/06/2024 12:17 PM EST documented as of this encounter Care Teams Hair Spring Cutter Relationship Specialty Start Date End Date Carol Medrano NP [address] [place] [phone] PCP - General Gerontology 04/11/25 documented as of this encounter
--- OUTSIDE RECORDS SUMMARY | 2025-08-19 09:02 | XMS_ITS | Encounter Summary ---
Author Organization [facility] Address [address] [place] [address] Care Team Providers Care Linen Room Attendant Name Role Phone Carol Medrano CARYN Primary Care Provider Encounter Details Date Type Department Care Team (Late Contact Info) Description 08/01/2023 External Result Entry [facility] Nephrology [address] [address] Lesli [place] Social History Tobacco Use [...] Encounters Date Type Department Care Team (Late Contact Info) Description 08/23/2025 9:00 AM EDT Follow-Up [facility] 85 [place] Pulmonology [address] [address] Darryl Ruiz MD [address] [address] 09/16/2025 2:30 PM EDT Follow-Up [facility] Nephrology [address] [place] [address] Rome Post MD [address] [address] 11/11/2025 8:30 AM EST Follow-Up [facility] Urology 20 [place] [address] Espinoza Ibarra MD 20 [place] [address] 12/26/2025 9:30 AM EST Education [facility] [address] [place] [address] 12/26/2025 11:00 AM EST Follow-Up [facility] Arthritis [facility] Joint [address] [address] Dawson Khan MD [address] [place] [address] 12/28/2025 10:30 AM EST Appointment [facility] Center [address] [place] [address] 3[address] [place] [address] 01/11/2026 11:10 AM EST Hospital Encounter [facility] Operating Room [address] [place] [address] Dawson Khan MD [address] [place] [address] 01/11/2026 11:10 AM EST - 01/11/2026 2:30 PM EST Surgery [facility] Operating Room [address] [place] [address] Dawson Khan MD [address] [place] [phone] RIGHT TOTAL HIP REPLACEMENT [[id number] (CPT )] 01/24/2026 10:00 AM EST Follow-Up [facility] [address] [place] [address] Dawson Khan MD [address] [place] [address] 02/22/2026 10:45 AM EDT Follow-Up [facility] [address] [place] [address] Dana Caruso NP [address] [place] [address] 04/21/2026 9:00 AM EDT Follow-Up [facility] [address] [place] [address] Dawson Khan MD [address] [place] [address] Scheduled Procedures Name Priority Associated Diagnoses Date/Ti me TOTAL HIP ARTHROPLASTY Right hip pain Primary osteoarthritis of right hip 01/11/2026 11:10 AM EST documented as of this encounter Procedures * Due to [place] state law, this organization might not be sharing negative HIV tests. Procedure Name Priority Date/Time Associated Diagnosis Comments RENAL FUNCTION PANEL, OUTSIDE LAB Routine 07/08/2023 PLATELET COUNT, OUTSIDE LAB Routine 07/08/2023 HEMATOCRIT, OUTSIDE LAB Routine 07/08/2023 HEMOGLOBIN, OUTSIDE LAB Routine 07/08/2023 RENAL FUNCTION PANEL, OUTSIDE LAB Routine 06/19/2023 PLATELET COUNT, OUTSIDE LAB Routine 06/19/2023 HEMATOCRIT, OUTSIDE LAB Routine 06/19/2023 MAGNESIUM, OUTSIDE LAB Routine 06/19/2023 RENAL FUNCTION PANEL, OUTSIDE LAB Routine 06/14/2023 documented in this encounter Results * Due to [place] state law, this organization might not be sharing negative HIV tests. * Hemoglobin, Outside Lab (07/08/2023) Hemoglobin 15.2 g/dL Blood Structure of peripheral vein / Unknown 07/08/2023 us Unknown Provider MD LAB BLOOD ORDERABLES Final R esult * Hematocrit, Outside Lab (07/08/2023) Hematocrit 43.6 % Blood Structure of peripheral vein / Unknown 07/08/2023 us Unknown Provider MD LAB BLOOD ORDERABLES Final R esult * Platelet Count, Outside Lab (07/08/2023) Platelets 240 10*3/uL Blood Structure of peripheral vein / Unknown 07/08/2023 us Unknown Provider MD LAB BLOOD ORDERABLES Final R esult * Renal Function Panel, Outside Lab (07/08/2023) Sodium 139 mmol/L Potassium 3.8 Chloride 101 CO2 29 mmol/L Anion Gap 13 Glucose 112 BUN 8 mg/dL Creatinine 1.04 mg/dL eGFR Non- 75 Calcium 9.8 mg/dL Albumin 5.0 g/dL Blood Structure of peripheral vein / Unknown 07/08/2023 us Unknown Provider MD LAB BLOOD ORDERABLES Final R esult * Magnesium, Outside Lab (06/19/2023) Magnesium 2.10 mg/dL Blood Structure of peripheral vein / Unknown 06/19/2023 us Unknown Provider MD LAB BLOOD ORDERABLES Final R esult * Hematocrit, Outside Lab (06/19/2023) Hematocrit 15.1 % Blood Structure of peripheral vein / Unknown 06/19/2023 Unknown Provider LAB BLOOD ORDERABLES Final R esult * Platelet Count, Outside Lab (06/19/2023) Platelets 44 10*3/uL Blood Structure of peripheral vein / Unknown 06/19/2023 Unknown Provider LAB BLOOD ORDERABLES Final R esult * Renal Function Panel, Outside Lab (06/19/2023) Sodium 141 mmol/L Potassium 3.7 CO2 28 mmol/L BUN 10 mg/dL Creatinine 0.86 mg/dL eGFR Non- 90 Calcium 9.7 mg/dL Albumin 4.7 g/dL Blood Structure of peripheral vein / Unknown 06/19/2023 Unknown Provider LAB BLOOD ORDERABLES Final R esult * Renal Function Panel, Outside Lab (06/14/2023) Sodium 143 mmol/L Potassium 3.9 Chloride 106 CO2 26 mmol/L Anion Gap 15 Glucose 133 BUN 12 mg/dL Creatinine 0.88 mg/dL eGFR Non- 90 Calcium 9.1 mg/dL Blood Structure of peripheral vein / Unknown 06/14/2023 Result [facility] Unknown Provider LAB BLOOD ORDERABLES Final R esult documented in this encounter Visit Diagnoses Not on filedocumented in this encounter Additional Health Concerns Infection Onset Date Last Indicated Resolved Time COVID-19 - Suspected infection 05/13/2022 05/13/2022 08/15/2023 10:35 PM EDT R/O Respiratory Virus Infection 06/10/2022 08/14/2023 5:51 PM EDT R/O Influenza 06/10/2022 06/10/2022 08/14/2023 5:5 1 PM EDT COVID-19 - Suspected infection 06/10/2022 06/10/2022 08/14/2023 5:51 PM EDT R/O Respiratory Virus Infection 10/06/2024 10/06/2024 12:17 PM EST R/O Influenza 10/06/2024 10/06/2024 10/06/2024 12: 17 PM EST COVID-19 - Suspected infection 10/06/2024 10/06/2024 10/06/2024 12:17 PM EST documented as of this encounter Care Teams Linen Room Attendant Relationship Specialty Start Date End Date Carol Medrano NP [address] [phone] PCP - General Gerontology 04/11/25 documented as of this encounter
--- OUTSIDE RECORDS SUMMARY | 2025-08-19 09:02 | XMS_ITS | Patient Health Record ---
Author Organization [facility] Address [address] [place] [address] Care Team Providers Care Carton Maker Name Role Phone Keena SRINIVASAN, Сергей Primary Care Provider UnavailKarlie Mayes Unavailable [phone] Allergies Allergen (clinical drug ingredient) Drug/Non Drug Allergy documented on EMR Reaction Allergy Type Onset Date Status Aleve rash Drug Allergy Active amoxicillin Amoxicillin Hepatitis Drug Allergy Act jerod sulfamethoxazole / trimethoprim Bactrim Unknown Drug Allergy Active Reason For Referral No Information Medications Medication SIG (Take, Route, Frequency, Duration) Notes Start Date End Date Status Allergy Relief 10 MG 1 tablet Orally Onc e a day; Duration: 30 day(s) Active Wixela Inhub 500-50 MCG/ACT 1 puff Inhalation Twice a day Active Rosuvastatin Calcium 5 MG 1 tablet Orall y Once a day Active Custom Orthotics as directed Diagnosis-Plantar Fasciitis 05/15/2023 Active metFORMIN HCl 1000 MG 1 tablet with a me al Orally Once a day Active Physical Therapy . . . 2-3x/week; Duration: 3-4 weeks 03/27/2023 Active Losartan Potassium 25 MG 1 tablet Orally Once a day Active Physical Therapy 3-4x per week for 3- 4 weeks 01/14/2020 Not-Taking Fluticasone Propionate 50 MCG/ACT 1 spray in each nostril Nasally Once a day Active Verapamil HCl ER Not -Taking Allopurinol Not-Taki ng Restasis 0.05 % 1 drop into affected eye Ophthalmic Twice a day Not-Taking Cromolyn Sodium 20 MG/2ML 2 ml Inhalatio n Three times a day Not-Taking Budesonide 0.5 MG/2ML 2 ml Inhalation On ce a day Not-Taking Advair HFA Not-Takin g Social History Tobacco Use: Social History Observation Description Date Details (start date - stop date) Never Smoker NA - NA Tobacco Use/Smoking Question Answer Notes Are you a: nonsmoker Additional Findings: Tobacco Non-User Aggressive non-smoker Alcohol Screen Question Answer Notes Did you have a drink containing alcohol in the p ast year? No Points 0 Interpretation Negative Tobacco use other than smoking: Question Answer Notes Are you an other tobacco user? No Problems Problem Type SNOMED Code ICD Code Onset Dates Problem Status W/U Status Risk Notes Problem Primary gout (88585575) Idiopathic gout, right ankle and foot (M10.071) Active confirmed Problem Polyneuropathy due to type 2 diabetes mellitus (437908293) Type 2 diabetes mellitus with polyneuropathy (E11.42) Active confirmed Problem Plantarflexion deformity of left foot (finding) (2910034397675068 ) Equinus deformity of left foot (M21.6X2) Active confirmed Problem Equinus deformit y of right foot (M21.6X1) Active confirmed Plan Of Treatment Pending Test Test Name Order Date X ray : Foot, left 3V 03/27/2023 Insurance Providers Payer Name Payer Address Payer Phone Subscriber Number Group Number Insured Name Patient Relationship to Insured Coverage Start Date Coverage End Date [facility] [address] [place] [address] [id number] Shashank Jensen Self - patient is the insured Medical (General) History Medical History History ICD Code Arthritis asthma Back pain Diverticulosis Hepatitis Hiatal hernia High blood pressure Liver disease Numbness Gout type II diabetes Measles Mumps Surgical History Surgery Date(Month/Year) Triple Hernia 06/06 bowel surgery 05/15
--- OUTSIDE RECORDS SUMMARY | 2025-08-19 09:02 | XMS_ITS | Clinical Summary ---
Author Organization [facility] Address [address] [facility] [place] [address] Care Team Providers Care Lens Blocker Name Role Phone No, Pcp MARINE ANIMAL TRAINER Primary Care Provider Unavailabl e Allergies Active Allergy Reactions Criticality Noted Date Comments Capsaicin-Menthol Rash Low 06/12/2018 Sulfamethoxazole-Trimethoprim 2017 Liver problems Omeprazole Rash Low 06/12/2018 Penicillins GI Intolerance 06/12/2018 diarrhea Medications cromolyn (INTAL) 20 mg/2 mL nebulizer solution 0 03/31/2018 Active ADVAIR DISKUS 500-50 mcg/dose DISKUS 0 05/19/2018 Active amLODIPine (NORVASC) 5 MG tablet 0 05/13/2018 Active PROAIR HFA 90 mcg/actuation inhaler inhale 2 puffs by mouth once daily if needed 0 05/26/2018 Active budesonide (PULMICORT) 0.5 mg/2 mL nebulizer solution 0 04/12/2018 Active diltiazem (CARDIZEM CD) 120 MG 24 hr capsule 0 05/28/2018 Active Social History Tobacco Use Types Packs/Day Years Used Date Smoking Tobacco: Never Smokeless Tobacco: Never Sex and Gender Information Value Date Recorded Sex Assigned at Not on file Legal Sex Male 8:06 AM EDT Gender Identity Not on file Sexual Orientation Not on file Plan of Treatment Health Maintenance Due Date Last Done Comments Colorectal Cancer: COLONOSCO PY Screening every 10 yrs (or Modifier) 1958 Depression: Screening Annual ly using PHQ-2/9 in Adults 18 yrs or above (or HM Modifier)([facility]) 1976 Hepatitis C Virus Infection in Adolescents and Adults: Screening (or Modifier) ([facility]) [address] [facility] Screening Reminder: Twyla francis for all adults ([facility]) 1976 Tobacco Smoking Cessation: i n Adults excluding Women: Behavioral and Pharmacotherapy Interventions ([facility]) 1976 DTaP/Tdap/Td Vaccines ([facility]) (1 - Tdap) 1977 Colorectal Cancer Screening 45 -75 Yrs (or HM Modifier ) 2003 Colorectal Cancer: FLEXIBLE SIGMOIDOSCOPY Screening every 5 yrs 2003 Colorectal Cancer: Fecal Imm unochemical Test (FIT) Annually [facility] 2003 Colorectal Cancer: High-sens itivity gFOBT Screening Annually [facility] 2003 Colorectal Cancer: Stool Col oguard Screening every 3 yrs 2003 Colorectal Cancer:CT Colonography Screening every 5 yr s 2003 Pneumococcal Vaccination Scr eening: Patients 50+ yrs of age ([facility]) (1 of 1 - PCV) 2008 Zoster/Shingles Vaccine Seri es Screening: Adults aged 18+ yrs (or HM Modifiers)([facility]) (1 of 2) 2008 Flu Vaccination: Ages 65+: Y early High Dose Recommended (or Modifier)([facility]) 06/24/2025 COVID-19 Vaccine Screening: Initial Series and Booster Status ([facility]) ( - 2023- season) 2025 RSV Vaccines (1 - 1-dose 75+ series) 2033 [employer] Not on [place] [address] [place] [id number] Care Teams Lens Blocker Relationship Specialty Start Date End Date No, Pcp, MARINE ANIMAL TRAINER N/A Do not use PCP - General 06/12/18
--- OUTSIDE RECORDS SUMMARY | 2025-08-19 09:02 | XMS_ITS | Encounter Summary ---
Author Organization [facility] Address [address] [place] [address] Care Team Providers Care Storage Wharfage Clerk Name Role Phone MitchellReinaldosaqibdede CARYN Primary Care Provider Encounter Details Date Type Department Care Team ([facility] st Contact Info) Description 07/26/2025 Results Follow-Up [address] Cardiology [address] [place] [address] Rigo Nguyen MD [address] [place] [address] Social History Tobacco Use Types Packs/Day Years Used Date Smoking Tobacco: Never Smokeless Tobacco: Never Comments:: Alcohol Use Standard Drinks/Week Comments Yes 0 (1 standard drink = 0.6 oz pur e alcohol) [facility] Utilities Answer Date Recorded In the past 12 months has e electric, gas, oil, or water company threatened to shut off services in your [...] 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 Not on file Not on file Not on file documented as of this encounter Plan of Treatment Upcoming Encounters Date Type Department Care Team ([facility] st Contact Info) Description 08/23/2025 9:00 AM EDT Follow-Up [address] Pulmonology [address] [address] Darryl Ruiz MD [address] [address] 09/16/2025 2:30 PM EDT Follow-Up [facility] Nephrology [address] [address] Rome Post MD [address] [address] 11/11/2025 8:30 AM EST Follow-Up [facility] Urology 20 [place] [address] Espinoza Ibarra MD 20 [place] [address] 12/26/2025 9:30 AM EST Education [facility] [address] [place] [address] 12/26/2025 11:00 AM EST Follow-Up [facility] [address] [place] [address] Dawson Khan MD 119 [place] [address] 12/28/2025 10:30 AM EST Appointment [facility] [address] [facility] 3rd [place] [address] 01/11/2026 11:10 AM EST Hospital Encounter [facility] Operating Room [address] [place] [address] Dawson Khan MD [address] [place] [address] 01/11/2026 11:10 AM EST - 01/11/2026 2:30 PM EST Surgery [facility] Operating Room [address] [place] [address] Dawson Khan MD [address] [place] [address] RIGHT TOTAL HIP REPLACEMENT [[id number] (CPT )] 01/24/2026 10:00 AM EST Follow-Up [facility] [address] [place] [address] Dawson Khan MD [address] [place] [address] 02/22/2026 10:45 AM EDT Follow-Up [facility] [address] [place] [address] Dana Caruso NP [address] [place] [address] 04/21/2026 9:00 AM EDT Follow-Up [facility] [address] [place] [address] Dawson Khan MD [address] [place] [address] Scheduled Procedures Name Priority Associated Diagnoses Date/Ti me TOTAL HIP ARTHROPLASTY Right hip pain Primary osteoarthritis of right hip 01/11/2026 11:10 AM EST documented as of this encounter Goals Goal Patient Goal Type Associated Problems Recent Progress Patient-Stated? Author Autogenerat ed Goal Care Plan Autogenerated Problem No Brandon Blackya Mehran documented as of this encounter Visit Diagnoses Not on filedocumented in this encounter Additional Health Concerns Active Problems Noted Date Diagnosed Date Autogenerated Problem 06/29/2025 documented as of this encounter Care Teams Storage Wharfage Clerk Relationship Specialty Start Date End Date Carol Medrano NP [address] [phone] PCP - General Gerontology 04/11/25 documented as of this encounter
--- OUTSIDE RECORDS SUMMARY | 2025-08-19 09:02 | XMS_ITS | Encounter Summary ---
Author Organization [facility] Address [address] [place] [address] Care Team Providers Care Chief Juvenile Probation Officer Name Role Phone Carol Medrano COMMUNITY HEALTH PROMOTER Primary Care Provider Encounter Details Date Type Department Care Team (Late st Contact Info) Description 10/06/2024 Lab Requisition [facility] Lab [address] [place] [address] Carol Medrano NP 100 [facility] [address] [place] [phone] Fever, unspecified Social History Tobacco Use Types Packs/Day Years Used Date Smoking Tobacco: Never Smokeless Tobacco: Never Comments:: Alcohol Use Standard Drinks/Week Comments Yes 0 (1 standard drink = 0.6 oz pur e alcohol) occ Sex and Gender Information Value Date Recorded Sex Assigned at Male 04/29/2021 2:07 PM EDT Legal Sex Male 3:42 AM EDT Gender Identity Male 04/29/2021 2:07 PM EDT Sexual Orientation Straight 04/29/2021 2: 07 PM EDT documented as of this encounter Plan of Treatment Upcoming Encounters Date Type Department Care Team (Late st Contact Info) Description 08/23/2025 9:00 AM EDT Follow-Up [facility] 85 [place] Pulmonology [address] [place] [address] Darryl Ruiz MD [address] [address] 09/16/2025 2:30 PM EDT Follow-Up [facility] Nephrology [address] [address] Rome Post MD [address] [address] 11/11/2025 8:30 AM EST Follow-Up [facility] Urology 20 [place] [address] Espinoza Ibarra MD 20 [place] [address] 12/26/2025 9:30 AM EST Education [facility] [address] [place] [address] 12/26/2025 11:00 AM EST Follow-Up [facility] [address] [place] [address] Dawson Khan MD [address] [place] [address] 12/28/2025 10:30 AM EST Appointment [facility] 281 [facility] 3rd [place] [address] 01/11/2026 11:10 AM EST Hospital Encounter [facility] Operating Room [address] [place] [address] Dawson Khan MD [address] [place] [address] 01/11/2026 11:10 AM EST - 01/11/2026 2:30 PM EST Surgery [facility] Operating Room [address] [place] [address] Dawson Khan MD [address] [place] [address] RIGHT TOTAL HIP REPLACEMENT [[id number] (CPT )] 01/24/2026 10:00 AM EST Follow-Up [facility] [address] [place] [address] Dawson Khan MD [address] [place] [address] 02/22/2026 10:45 AM EDT Follow-Up [facility] [address] [place] [address] Dana Caruso NP [address] [place] [address] 04/21/2026 9:00 AM EDT Follow-Up [facility] [address] [place] [address] Dawson Khan MD [address] [place] [address] Scheduled Procedures Name Priority Associated Diagnoses Date/Ti me TOTAL HIP ARTHROPLASTY Right hip pain Primary osteoarthritis of right hip 01/11/2026 11:10 AM EST documented as of this encounter Procedures * Due to [facility] law, this organization might not be sharing negative HIV tests. Procedure Name Priority Date/Time Associated Diagnosis Comments MVL QS - COVID-19, FLU A/B & RSV RNA PCR, SYMPTOMATIC Routine 10/06/2024 11:33 AM EST Fever, unspecified documented in this encounter Results * Due to [place] state law, this organization might not be sharing negative HIV tests. * COVID-19, Flu A/B & RSV RNA PCR, Symptomatic (10/06/2024 11:33 AM EST) PCR, SARS CoV-2 RNA Not Detected Not Detected CEPHEID GENEXPERT 10/06/2024 12:17 PM EST [facility] Flu A RNA PCR Not Detected Not Detected CEPHEID GENEXPERT 10/06/2024 12:17 PM EST [facility] Flu B RNA PCR Not Detected Not Detected CEPHEID GENEXPERT 10/06/2024 12:17 PM EST [facility] RSV RNA PCR Not Detected Not Detected CEPHEID GENEXPERT 10/06/2024 12:17 PM EST [facility] Comment: Limitations: This RSV test is suitable for the pediatric population (less than 19 years of age) only. Performance characteristics have not been established for use with patients older than 19 years of age and immunocompromised patients. Test results must be evaluated in conjuction with other clinical data available to the physician. Swab (Nares) 10/06/2024 11:3 3 AM EST 10/06/2024 11:33 AM EST [facility] - 10/06/2024 12:17 PM EST Methodology: The [employer]ack GeneXpert CoV-2/Flu/RSV plus assay is For Use Under an Emergency Use Authorization (EUA) Only with [employer]. The CoV-2/Flu/RSV plus assay is a rapid, multiplexed real-time RT-PCR assay intended for the simultaneous qualitative detection and differentiation of RNA from SARS-CoV-2, influenza A, influenza B, and Respiratory Syncytial Virus (RSV) in specimens collected from individuals suspected of a respiratory viral infection, by their healthcare provider. A positive test result for SARS-CoV-2, influenza or RSV indicates that RNA from that virus was detected. A negative test result indicates that RNA virus was not present in the specimen above the limit of detection. Therefore, a negative result does not rule out SARS-CoV-2, influenza or RSV infection and should not be used as the sole basis for treatment or other patient management decisions. us Carol Medrano NP LAB BODY FLUIDS AND STOOLS ORD ERABLES Final Result [facility] 94 [facility] 2ND [place] [address], [place] [phone] documented in this encounter Visit Diagnoses Diagnosis Fever, unspecified Right hip pain Pain in joint, pelvic [...] documented as of this encounter Care Teams Chief Juvenile Probation Officer Relationship Specialty Start Date End Date Carol Medrano NP 100 [facility] [address] [place] [address] PCP - General Gerontology 04/11/25 documented as of this encounter
--- OUTSIDE RECORDS SUMMARY | 2025-08-19 09:02 | XMS_ITS | Encounter Summary ---
Author Organization [facility] Address [address] [place] [address] Care Team Providers Care Precision Instrument Maker Name Role Phone MitchellReinaldosaqibdede CARYN Primary Care Provider [phone] Encounter Details Date Type Department Care Team ([facility] st Contact Info) Description 08/04/2025 Results Follow-Up [address] Physiatry Department [address] [place] [address] Malvin Jordan MD [address] [place] [address] Social History Tobacco Use Types Packs/Day Years Used Date Smoking Tobacco: Never Smokeless Tobacco: Never Comments:: Alcohol Use Standard Drinks/Week Comments Yes 0 (1 standard drink = 0.6 oz pur e alcohol) [facility] Utilities Answer Date Recorded In [...] 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 file Not on file Not on file documented as of this encounter Miscellaneous Notes * Telephone Encounter - Samy Tavera - 08/05/2025 1:50 PM EDT ----- Message from Malvin Jordan MD sent at 08/04/2025 4:50 PM EDT ----- Imaging reviewed, please have patient scheduled for follow up appointment for imaging review and management discussion ----- Message ----- From: Interface, Radiology Results In Sent: 08/04/2025 2:31 PM EDT To: Malvin Jordan MD documented in this encounter Plan of Treatment Upcoming Encounters Date Type Department Care Team (Late st Contact Info) Description 08/23/2025 9:00 AM EDT Follow-Up [facility] 85 [place] Pulmonology [address] [address] Darryl Ruiz MD [address] [address] 09/16/2025 2:30 PM EDT Follow-Up [facility] Nephrology [address] [place] [address] Rome Post MD [address] [place] [address] 11/11/2025 8:30 AM EST Follow-Up [facility] Urology [address] [place] [phone] Espinoza Ibarra MD 20 [place] [address] 12/26/2025 9:30 AM EST Education [facility] [address] [place] [address] 12/26/2025 11:00 AM EST Follow-Up [facility] [address] [place] [address] Dawson Khan MD [address] [place] [address] 12/28/2025 10:30 AM EST Appointment [facility] [address] [place] [address] [address] [place] [address] 01/11/2026 11:10 AM EST Hospital Encounter [facility] Operating Room [address] [place] [address] Dawson Khan MD [address] [place] [address] 01/11/2026 11:10 AM EST - 01/11/2026 2:30 PM EST Surgery [facility] Operating Room [address] [place] [address] Dawson Khan MD [address] [place] [address] RIGHT TOTAL HIP REPLACEMENT [[id number] (CPT )] 01/24/2026 10:00 AM EST Follow-Up [facility] [address] [place] [address] Dawson Khan MD [address] [place] [address] 02/22/2026 10:45 AM EDT Follow-Up [facility] [address] [place] [address] Dana Caruso NP [address] [place] [address] 04/21/2026 9:00 AM EDT Follow-Up [facility] [address] [place] [address] Dawson Khan MD [address] [place] [address] Scheduled Procedures Name Priority Associated Diagnoses Date/Ti me TOTAL HIP ARTHROPLASTY Right hip pain Primary osteoarthritis of right hip 01/11/2026 11:10 AM EST documented as of this encounter Goals Goal Patient Goal Type Associated Problems Recent Progress Patient-Stated? Author Autogenerat ed Goal Care Plan Autogenerated Problem No Geovanna Black documented as of this encounter Visit Diagnoses Not on filedocumented in this encounter Additional Health Concerns Active Problems Noted Date Diagnosed Date Autogenerated Problem 06/29/2025 documented as of this encounter Care Teams Precision Instrument Maker Relationship Specialty Start Date End Date Carol Medrano NP [address] [place] [phone] PCP - General Gerontology 04/11/25 documented as of this encounter
[2025-08-19 09:19] VITALS: BMI 28.3
--- NOTE | 2025-08-19 09:19 | A.SPINEOV_ITS ---
Vital Signs 08/19/25 09:19 Height 5 ft 11 in Weight 203 lb BMI 28.3 Intake Visit Reasons: low back pain/right side into the hip Intake Note: Mr. Jensen is here today c/o lower right back pain. Desizing Machine Operator Required: No Allergies alprazolam Allergy (Severe, Verified 08/19/25 09:23) Rash bumetanide Allergy (Severe, Verified 08/19/25 09:23) Diarrhea gabapentin Allergy (Severe, Verified 08/19/25 09:23) Drowsy naproxen Allergy (Unknown, Verified 08/19/25 09:23) Unknown sulfamethoxazole (From Sulfamethoxazole-Trimethoprim) Allergy (Unknown, Verified 08/19/25 09:23) Unknown trimethoprim (From Sulfamethoxazole-Trimethoprim) Allergy (Unknown, Verified 08/19/25 09:23) Unknown capsaicin-Menthol Allergy (Severe, Uncoded 08/19/25 09:23) Rash Physical Exam Vital Signs: BMI result Body Mass Index 28.3 Assessment & Plan Assessment & Plan (1) Right hip pain: Code(s): M25.551 - Pain in right hip Category: Medical Plan Dear colleague Thank you for referring Shashank Jensen to the office today with a chief complaint of right-sided back pain. HPI: This 65-year-old male suffering from pain across the lumbar spine and right-sided hip pain on the outside of the hip. He has seen 2 orthopedic surgeons that wonder do a hip replacement, although they are not sure if this will help his hip pain. Comes in for 2nd opinion. He states that the pain is constantly present. The back pain bothers him at night during sleep. The pain in the right hip does not go below the knee. The left side is unaffected. He also has tingling in the lateral part of the right hip area. He was advised to undergo additional testing before the hip replacement. He was advised to undergo an L4 nerve block and possible SI joint injection. The following conservative treatment options were tried without success antiinflammatories, tylenol, physician guided home exercise plan, cortisone shots PMH: Hypertension, asthma, sleep apnea, hypercholesterolemia, anxiety, colon surgery, hernia repair Medications: Rosuvastatin, meloxicam, alprazolam on doxazosin, clonidine Allergies: Alprazolam bumetanide gabapentin naproxen Urrutia metaxalone Social history: . Nonsmoker Physical Exam: Straight leg raise is negative. Inward and outward rotation of the right hip produces mild pain. SI joint provocative tests are positive on the right. Radiological Studies: MRI done at [facility] on 08/04/2025 shows a near normal lumbar spine MRI. There is [id number] right L4 foraminal stenosis. Impression/Plan: This patient is suffering from a predominantly right-sided hip pain with a differential diagnosis of hip pathology, SI joint or radicular pain. I explained to him that his MRI of the lumbar spine is not impressive. The L4 foraminal stenosis is there but his complaints do not follow the distribution of the L4 nerve root. I agree with the recommendations to exclude the spine in his eye joint as possible generators for the pain. He will follow through and go for the nerve block in his eye joint injection. Thank you for allowing me to participate in your patients care. total time spent was 50 minutes in counseling ,coordination of plan, personal review of imaging, surgical decision making and subsequent plan Jay Chery MD, PhD Spine Fellowship Trained Neurosurgeon Director, [facility] Coding Level of Care Code New Pt Level 4 (97255) Diagnoses Right hip pain M25.551
== END 2025-08-19 09:54 | disposition home or self-care (01) ==
LOC: HO.HNS 08:40
PROVIDERS: PCP Registered Nurse; Visit Provider Neurological Surgery
DX: M25.551 Pain in right hip (principal)
CPT/HCPCS: 99204